=== PATIENT | male | born 1970 | race Two or more races ===

== ENCOUNTER 2020-10-26 12:50 | Inpatient (IN) | payer OTHER ==
[2020-10-26] MEDS ORDERED: chlordiazePOXIDE HCL 25 MG CAPSULE PO ONE (15:50)
[2020-10-26] MEDS ORDERED: diazePAM 5 MG TABLET PO ONE (16:18)
[2020-10-26] MEDS ORDERED: diazePAM 5 MG TABLET ONE (16:44)
[2020-10-26 17:20] LABS: EOS % 1.5 % (0-4.5); HEMATOCRIT 30.8 % (35.4-49); HEMOGLOBIN 10.1 GM/dL (11.7-16.9); LYMPH % 37.7 % (8-40); MCH 27.2 pg (25.7-33.7); MEAN CELL VOLUME 82.5 fl (80-96); MEAN PLT VOLUME 7.5 fl (7.5-11.1); MONO % 8.7 % (3.8-10.2); NEUT % 50.1 % (42.8-82.8); PLATELET COUNT 257 10^3/uL (134-434); RBC 3.73 M/mm3 (4.00-5.60); RDW 14.8 % (11.9-15.9); WHITE BLOOD COUNT 7.9 K/mm3 (4.0-10.0)
[2020-10-26 17:41] LABS: CHLORIDE 103 mmol/L (98-107); SODIUM 139 mmol/L (136-145)
[2020-10-26 17:44] LABS: ALBUMIN 3.1 g/dl (3.4-5.0); ANION GAP 5 MMOL/L (8-16); BLOOD UREA NITROGEN 14.6 mg/dL (7-18); CALCIUM 8.6 mg/dL (8.5-10.1); CO2 30 mmol/L (21-32); GLUCOSE,RANDOM 95 mg/dL (74-106)
[2020-10-26 17:47] LABS: SGOT/AST 29 U/L (15-37); SGPT/ALT 33 U/L (13-61)
[2020-10-26 17:48] LABS: CREATININE 0.8 mg/dL (0.55-1.3)
[2020-10-26 17:49] LABS: BILIRUBIN,TOTAL 0.3 mg/dL (0.2-1)
[2020-10-26 17:50] LABS: ALK PHOS 74 U/L (45-117)
[2020-10-26] MEDS ORDERED: CLINDAMYCIN 600MG PREMIX IVPB 600 MG/50 ML BAG IVPB ONE ×2 (17:53→20:52)
[2020-10-26] MEDS ORDERED: LORazepam 1 MG TABLET PO PRN (22:48)
[2020-10-26] MEDS ORDERED: FOLIC ACID INJECTION - 1 MG, THIAMINE HCL 100 MG, MULTIVIT INJECTION ADULT 10 ML in SOD... IVPB ONE (23:30)
[2020-10-27] MEDS ORDERED: CLINDAMYCIN 600MG PREMIX IVPB 600 MG/50 ML BAG IVPB ONE (03:28)
[2020-10-27] MEDS ORDERED: LORazepam 2 MG/ML SDV VIAL ONE (03:28)
[2020-10-27] MEDS: LORazepam 1 MG TABLET PO SCH ×6 (03:40→22:03)
[2020-10-27] MEDS: CLINDAMYCIN 600MG PREMIX IVPB 600 MG/50 ML BAG IVPB SCH ×3 (03:41→14:59)
[2020-10-27 08:20] LABS: URINE APPEARANCE CLEAR; URINE BILIRUBIN NEGATIVE (NEGATIVE); URINE COLOR YELLOW; URINE GLUCOSE (UA) NEGATIVE (NEGATIVE); URINE KETONE NEGATIVE (NEGATIVE); URINE LEUK ESTERASE NEGATIVE (NEGATIVE); URINE NITRITE NEGATIVE (NEGATIVE); URINE PROTEIN NEGATIVE (NEGATIVE)
[2020-10-27] MEDS ORDERED: methaDONE HCL 10 MG TABLET (FOR DETOX USE ONLY) PO ONE (10:33)
[2020-10-27] MEDS ORDERED: methaDONE HCL 40 MG DISPERSABLE TABLET ONE (12:50)
[2020-10-27] MEDS ORDERED: methaDONE HCL 10 MG TABLET ONE (12:50)
[2020-10-27] MEDS: ENOXAPARIN NA (PORCINE) 40 MG/0.4 ML DISP.SYRIN SQ SCH (13:01)
[2020-10-27] MEDS: LACTOBACILLUS ACIDOPHILUS 1 TABLET PO SCH (17:58)
[2020-10-27] MEDS: CLINDAMYCIN HCL 150 MG CAPSULE (FP) PO SCH ×2 (17:58→22:02)
[2020-10-28] MEDS ORDERED: LORazepam 0.5 MG TABLET PO PRN
[2020-10-28] MEDS: CLINDAMYCIN HCL 150 MG CAPSULE (FP) PO SCH ×3 (05:29→22:06)
[2020-10-28] MEDS: LORazepam 0.5 MG TABLET PO SCH ×4 (05:32→22:07)
[2020-10-28] MEDS ORDERED: methaDONE HCL 10 MG TABLET ONE (10:00)
[2020-10-28] MEDS ORDERED: methaDONE HCL 40 MG DISPERSABLE TABLET ONE (10:00)
[2020-10-28] MEDS: LACTOBACILLUS ACIDOPHILUS 1 TABLET PO SCH (10:20)
[2020-10-28] MEDS: ENOXAPARIN NA (PORCINE) 40 MG/0.4 ML DISP.SYRIN SQ SCH (10:20)
[2020-10-28 13:08] VITALS: BMI 29.0
[2020-10-28] MEDS: FOLIC ACID 1 MG TABLET (FP) PO SCH (15:20)
[2020-10-28] MEDS: THIAMINE HCL 100 MG TABLET (FP) PO SCH (22:08)
[2020-10-29] MEDS ORDERED: LORazepam 0.5 MG TABLET PO ONE (05:00)
[2020-10-29] MEDS ORDERED: methaDONE HCL 10 MG TABLET ONE (05:28)
[2020-10-29] MEDS ORDERED: methaDONE HCL 40 MG DISPERSABLE TABLET ONE (05:28)
[2020-10-29] MEDS: CLINDAMYCIN HCL 150 MG CAPSULE (FP) PO SCH ×3 (05:31→21:25)
[2020-10-29] MEDS: FOLIC ACID 1 MG TABLET (FP) PO SCH (10:01)
[2020-10-29] MEDS: LACTOBACILLUS ACIDOPHILUS 1 TABLET PO SCH (10:01)
[2020-10-29] MEDS: ENOXAPARIN NA (PORCINE) 40 MG/0.4 ML DISP.SYRIN SQ SCH (10:01)
[2020-10-29] MEDS: MAG HYDROX/AL HYDROX/SIMETH 30 ML UNIT-DOSE CUP PO PRN (11:20)
[2020-10-29] MEDS: THIAMINE HCL 100 MG TABLET (FP) PO SCH (21:25)
[2020-10-30] MEDS ORDERED: methaDONE HCL 40 MG DISPERSABLE TABLET ONE (05:17)
[2020-10-30] MEDS ORDERED: methaDONE HCL 10 MG TABLET ONE (05:18)
[2020-10-30] MEDS: CLINDAMYCIN HCL 150 MG CAPSULE (FP) PO SCH ×3 (05:20→21:31)
[2020-10-30] MEDS ORDERED: HYDROCORTISONE 1% TOPICAL LOTION 118 ML BOTTLE TP PRN (12:00)
[2020-10-30] MEDS: ENOXAPARIN NA (PORCINE) 40 MG/0.4 ML DISP.SYRIN SQ SCH (12:37)
[2020-10-30] MEDS: FOLIC ACID 1 MG TABLET (FP) PO SCH (12:42)
[2020-10-30] MEDS: LACTOBACILLUS ACIDOPHILUS 1 TABLET PO SCH (12:42)
[2020-10-30] MEDS ORDERED: POLYETHYLENE GLYCOL (HEALTHYLAX) 3350 17 GM PACKET PO ONE (14:26)
[2020-10-30] MEDS: POLYETHYLENE GLYCOL (HEALTHYLAX) 3350 17 GM PACKET PO SCH (21:16)
[2020-10-30] MEDS: THIAMINE HCL 100 MG TABLET (FP) PO SCH (21:31)
[2020-10-31] MEDS ORDERED: methaDONE HCL 40 MG DISPERSABLE TABLET ONE (05:39)
[2020-10-31] MEDS ORDERED: methaDONE HCL 10 MG TABLET ONE (05:40)
[2020-10-31] MEDS: CLINDAMYCIN HCL 150 MG CAPSULE (FP) PO SCH ×2 (06:10→13:04)
[2020-10-31 06:19] VITALS: BP 94/54; PULSE 72; TEMP 97.7
[2020-10-31] MEDS: FOLIC ACID 1 MG TABLET (FP) PO SCH (10:21)
[2020-10-31] MEDS: ENOXAPARIN NA (PORCINE) 40 MG/0.4 ML DISP.SYRIN SQ SCH (10:21)
[2020-10-31] MEDS: POLYETHYLENE GLYCOL (HEALTHYLAX) 3350 17 GM PACKET PO SCH (10:21)
[2020-10-31] MEDS: LACTOBACILLUS ACIDOPHILUS 1 TABLET PO SCH (10:21)
[2020-10-31] MEDS: MAG HYDROX/AL HYDROX/SIMETH 30 ML UNIT-DOSE CUP PO PRN (10:26)
[2020-10-31] MEDS ORDERED: PANTOPRAZOLE 40 MG TABLET PO SCH (12:15)
== END 2020-10-31 14:08 | disposition home or self-care (01) | DRG 772 ==
LOC: JER 12:50 → JERBED 18:05 → J5S 10-27 11:08
PROVIDERS: ADMIT Internal Medicine; ATTEND Nurse Practitioner Acute Care
PROC: HZ91ZZZ Pharmacotherapy for Substance Abuse Treatment, Methadone Maintenance (ICD-10-PCS; principal; 2020-10-26)
DX: F10.239 Alcohol dependence with withdrawal, unspecified (principal); L98.498 Non-pressure chronic ulcer of skin of other sites with other specified severity; F11.23 Opioid dependence with withdrawal; D64.9 Anemia, unspecified; S49.90XA Unspecified injury of shoulder and upper arm, unspecified arm, initial encounter; F17.210 Nicotine dependence, cigarettes, uncomplicated; R10.13 Epigastric pain; R51.9 Headache, unspecified; M54.2 Cervicalgia; M54.9 Dorsalgia, unspecified; R11.0 Nausea; L08.9 Local infection of the skin and subcutaneous tissue, unspecified; X58.XXXA Exposure to other specified factors, initial encounter; Y93.89 Activity, other specified; Y92.9 Unspecified place or not applicable; Y99.9 Unspecified external cause status
CPT/HCPCS: 36415; 80053; 81003; 82550; 84484; 85025; 87040; 93005; 93010; 99285-25; C9803; U0003; U0005